=== PATIENT | female | born 2000 | race Hispanic/Latino ===

== ENCOUNTER 2018-05-29 11:54 | Emergency (ER) | payer SELFPAY ==
[2018-05-29] MEDS ORDERED: Proparacaine 0.5% Opth 15 ML BOT ONE (12:38)
[2018-05-29] MEDS ORDERED: Fluorescein Opthalmic Strip ONE (12:38)
== END 2018-05-29 13:39 | disposition home or self-care (01) ==
LOC: ERS 11:54
DX: H10.9 Unspecified conjunctivitis (principal)
CPT/HCPCS: 99283

== ENCOUNTER 2018-05-31 19:11 | Emergency (ER) | payer SELFPAY | END 2018-05-31 19:43 | disposition home or self-care (01) | LOC: ERS 19:11 | DX: J01.90 Acute sinusitis, unspecified (principal) | CPT/HCPCS: 99283 ==